=== PATIENT | male | born 1945 | race Caucasian/White ===

== ENCOUNTER 2022-02-03 15:35 | Emergency (ER) | payer OTHER, MEDICAID ==
[~2022-02-03] VITALS: Ht 172.7 cm; Wt 75.0 kg
[~2022-02-03 15:35] MED LIST: ISOS5TAB4; NITR0.4T49
[2022-02-03 15:37] VITALS: BP 150/82
[2022-02-03 17:43] LABS: CLARITY URINE CLEAR (CLEAR); COLOR URINE YELLOW (YELLOW); KETONES URINE NEGATIVE (NEGATIVE); LEUKOCYTE ESTERASE URINE NEGATIVE (NEGATIVE); NITRITE URINE NEGATIVE (NEGATIVE); OCCULT BLOOD URINE NEGATIVE (NEGATIVE); PH URINE 6.5 (4.5-8.0); PROTEIN URINE NEGATIVE (NEGATIVE); SPECIFIC GRAVITY URINE 1.025 (1.005-1.030); UROBILINOGEN URINE 0.2 E.U./dL (0.2-1.0)
[2022-02-03] MEDS ORDERED: ASPIRIN 81MG TABLET PO ONE (18:30)
[2022-02-03 18:38] LABS: BASOPHILS % 1.3 % (0.0-2.0); EOSINOPHILS % 3.6 % (0.0-5.0); HEMATOCRIT. 42.3 % (42.0-52.0); HEMOGLOBIN. 14.3 g/dL (14.0-18.0); LYMPHOCYTES % 41.8 % (20.0-50.0); MEAN CORPUSCULAR HEMOGLOBIN 28.9 pg (28.0-32.0); MEAN CORPUSCULAR VOLUME 85.7 fL (80.0-94.0); MEAN PLATELET VOLUME 11.2 fl (7.4-10.4); MONOCYTES % 5.8 % (2.0-8.0); NEUTROPHILS % 47.5 % (40.0-76.0); PLATELET 209 x1000/uL (130-400); RED BLOOD CELL COUNT 4.94 mill/uL (4.7-6.1); RED CELL DISTRIBUTION WIDTH 13.9 % (11.6-14.6)
[2022-02-03] MEDS ORDERED: SODIUM CHLORIDE 0.9% 500 ML IV ONE (18:45)
[2022-02-03] MEDS ORDERED: INSULIN REGULAR (HUMULIN R) 300UNITS/3ML VIAL IV ONE (18:45)
[2022-02-03 19:00] LABS: CHLORIDE 107 mEq/L (98-107)
[2022-02-03 19:11] LABS: BETA HYDROXYBUTYRATE 0.1 mMol/L (0.0-0.3); PROTHROMBIN TIME 10.7 sec (9.6-11.0)
== END 2022-02-03 20:14 | disposition home or self-care (01) ==
LOC: ER 15:35
DX: I11.9 Hypertensive heart disease without heart failure (principal); E11.65 Type 2 diabetes mellitus with hyperglycemia; I25.10 Atherosclerotic heart disease of native coronary artery without angina pectoris; Z95.1 Presence of aortocoronary bypass graft; Z79.4 Long term (current) use of insulin
CPT/HCPCS: 36415; 36600; 71045; 80053; 81003; 82010; 82375; 82962; 83690; 83880; 84484; 85025; 85610; 93005; 96374; 99285; J1815; J7040